=== PATIENT | female | born 1990 | race Hispanic/Latino ===

== ENCOUNTER 2017-02-25 20:57 | Emergency (ER) | payer BC ==
[~2017-02-25] VITALS: Ht 160 cm; Wt 71.9 kg
[~2017-02-25 20:57] MED LIST: CENTRUM SILVER1 EAC4 PO; CIPRO500 MG PO; DILAUDID2 MG PO; FLOMAX0.4 MG PO; FOLIC ACID0.4 MG PO; IBUPROFEN800 MG PO; MOTRIN600 MG PO; PERCOCET 5/31 TABLET PO; VITAFOL-OB+DHA1 EACH PO; ZOFRAN4 MG PO
[2017-02-25] MEDS ORDERED: PATANOL OP100 DROP/5 BOTH EYES (22:41)
[2017-02-25 22:51] VITALS: BP 135/94
== END 2017-02-25 22:52 | disposition home or self-care (01) ==
LOC: EXP 20:57 → EME 20:57 → EXP 22:52
DX: H10.13 Acute atopic conjunctivitis, bilateral (principal)
CPT/HCPCS: 99281; 99283; J8540